=== PATIENT | female | born 1985 | race Caucasian/White ===

== ENCOUNTER 2018-07-16 23:45 | Inpatient (IN) | payer BC ==
[2018-07-17 00:11] VITALS: BMI 28.1
[2018-07-17 00:50] LABS: SQUAMOUS EPITHIAL 3 /hpf (0-5); URINE BACTERIA RARE (<OCC); URINE BILIRUBIN NEGATIVE (NEGATIVE); URINE BLOOD NEGATIVE (NEGATIVE); URINE CLARITY Clear (Clear); URINE COLOR Straw (YELLOW); URINE GLUCOSE (UA) NORMAL (Normal); URINE LEUKOCYTE ESTERASE NEG Leu/uL (Negative); URINE PROTEIN NEGATIVE (NEGATIVE); URINE UROBILINOGEN NORMAL mg/dL (0.2-1.0)
[2018-07-17] MEDS ORDERED: Lactated Ringer's 1,000 ML IV ONE (01:13)
[2018-07-17] MEDS ORDERED: Penicillin G 5 Million Unit Vial IVPB ONE ×2 (01:13→01:42)
[2018-07-17 01:46] LABS: BASO # 0.1 K/uL (0.0-0.2); BASO % 0.6 % (0.0-2.0); EOS # 0.1 K/uL (0.0-0.7); EOS % 0.6 % (0.0-4.0); HEMOGLOBIN 12.4 g/dL (11.0-16.0); LYMPH # 1.7 K/uL (1.0-4.3); MEAN CELL VOLUME 93.9 fL (81.0-99.0); MEAN CORPUSCULAR HEMOGLOBIN 31.8 pg (27.0-31.0); MEAN CORPUSCULAR HGB CONC 33.9 g/dL (33.0-37.0); MEAN PLATELET VOLUME 8.5 fL (7.2-11.7); MONO # 1.1 K/uL (0.0-0.8); MONO % 7.5 % (0.0-10.0); NEUT # 11.1 K/uL (1.8-7.0); NEUT % 79.3 % (50.0-75.0); RBC 3.89 Mil/uL (3.80-5.20); RED CELL DISTRIBUTION WIDTH 14.5 % (11.5-14.5)
[2018-07-17 01:59] LABS: ALB/GLOB RATIO 1.2 (1.0-2.1); ALBUMIN 3.8 g/dL (3.5-5.0); ALT/SGPT 40 U/L (9-52); AST/SGOT 24 U/L (14-36); BLOOD UREA NITROGEN 7 mg/dL (7-17); CALCIUM 9.2 mg/dl (8.6-10.4); GFR NON-AFRICAN AMERICAN > 60
[2018-07-17] MEDS: Lactated Ringer's 1,000 ML IV SCH (02:35)
--- NOTE | 2018-07-17 10:39 | US ---
Indication: Comparison: None available. Technique: Real-time ultrasound was performed through the pelvis. Findings: There is a single living fetus in cephalic presentation. Amniotic fluid volume is within normal limits. Anterior placenta. The placenta is not previa. There are no adnexal masses or cysts evident. Cervix length measures approximately 2.3 cm. The study was performed for emergent evaluation, and the whole anatomic survey of the fetus was not performed. Biophysical profile: movements 2/2 breathing 2/2 tone 2/2 Amniotic fluid 2/2 Total score impression: 8/8 Measurements and calculations: Fetus has a composite sonographic age of 38 weeks 4 days. This calculation is based on the biparietal diameter, head circumference, abdominal circumference, and femur length. Estimated heart rate 146 beats per min. Estimated weight 3580 g. Impression: Single living fetus with a composite sonographic age of 38 weeks 4 days. Estimated heart rate 146 beats per min. Cervix length appears shortened measuring approximately 2.3 cm. Biophysical profile of 8 out of 8.
[2018-07-17] MEDS ORDERED: Bupivacaine HCl/FentaNYL Cit 100 ML EPI ONE ×2 (12:41→20:45)
[2018-07-17] MEDS ORDERED: Oxytocin 30 UNIT 30 UNITS/500 ML BAG IV SCH (19:45)
[2018-07-17] MEDS ORDERED: Oxytocin 30 UNIT 30 UNITS/500 ML BAG IV ONE (22:18)
[2018-07-17] MEDS ORDERED: Oxycodone/Acetaminophen 5/325 mg Tab PO PRN ×2 (22:18→22:44)
[2018-07-17] MEDS ORDERED: Sodium Citrate/Citric Acid 15 ml Sol ONE (22:46)
[2018-07-17] MEDS ORDERED: Sodium Citrate/Citric Acid 15 ml Sol PO STA (22:47)
[2018-07-17] MEDS ORDERED: Lidocaine 2% MPF (5 ml) Inj ONE (23:45)
[2018-07-17] MEDS ORDERED: Lidocaine Hydrochloride 10 ML INJ ONE (23:45)
[2018-07-17] MEDS ORDERED: Morphine 1 mg/ml preservative-free Inj(Duramorph) ONE (23:51)
[2018-07-17] MEDS ORDERED: Midazolam 2 MG/2 ML VIAL ONE (23:51)
[2018-07-18] MEDS ORDERED: Oxytocin 10 Units/ml Inj ONE (00:04)
[2018-07-18 08:41] LABS: HEMOGLOBIN 9.6 g/dL (11.0-16.0); MEAN CELL VOLUME 93.9 fL (81.0-99.0); MEAN CORPUSCULAR HEMOGLOBIN 31.4 pg (27.0-31.0); MEAN CORPUSCULAR HGB CONC 33.4 g/dL (33.0-37.0); MEAN PLATELET VOLUME 8.2 fL (7.2-11.7); RBC 3.07 Mil/uL (3.80-5.20); RED CELL DISTRIBUTION WIDTH 14.4 % (11.5-14.5)
[2018-07-18] MEDS: Prenatal Multivit/Folic Acid/Iron Tab PO SCH (10:13)
[2018-07-18] MEDS: Simethicone 80 mg Chewtab PO SCH ×4 (10:13→21:55)
[2018-07-18] MEDS: Lactated Ringer's 1,000 ML IV SCH ×2 (12:38→17:43)
[2018-07-18 17:05] LABS: BASO # 0.1 K/uL (0.0-0.2); BASO % 0.2 % (0.0-2.0); HEMOGLOBIN 9.6 g/dL (11.0-16.0); LYMPH # 1.4 K/uL (1.0-4.3); LYMPH % 6.3 % (20.0-40.0); MEAN CELL VOLUME 93.6 fL (81.0-99.0); MEAN CORPUSCULAR HEMOGLOBIN 31.8 pg (27.0-31.0); MEAN PLATELET VOLUME 8.1 fL (7.2-11.7); MONO # 1.6 K/uL (0.0-0.8); MONO % 7.3 % (0.0-10.0); NEUT # 19.2 K/uL (1.8-7.0); NEUT % 86.2 % (50.0-75.0); PLATELET COUNT 164 K/uL (130-400); RBC 3.03 Mil/uL (3.80-5.20); RED CELL DISTRIBUTION WIDTH 14.8 % (11.5-14.5); WHITE BLOOD COUNT 22.2 K/uL (4.8-10.8)
[2018-07-18 17:48] LABS: LYMPHOCYTE 8 % (20-40); METAMYELOCYTE 1 % (0-0); MONOCYTE 2 % (0-10); NEUTROPHIL 89 % (50-75); TOTAL CELLS COUNTED 100
[2018-07-18 17:49] LABS: PLATELET ESTIMATE NORMAL (NORMAL)
[2018-07-19] MEDS: Simethicone 80 mg Chewtab PO SCH ×4 (10:09→22:09)
[2018-07-19] MEDS: Prenatal Multivit/Folic Acid/Iron Tab PO SCH (10:24)
--- NOTE | 2018-07-19 11:40 | OBADHP ---
Datetime: 07/17/2018 01:59 Admit Comment, IP Provider: 32 yo female G1 with an IUP at 38.6 weeks Presented with c/o of painful contractions Q 4-5 minutes and since about 8 PM tonite Admits to adequate FM, Denies LOF, VB or VD PMHx and PSHx negative Meds PNV NKDA + GBS, per [facility] records NST Reactive UC's Q 405 minutes SVE 2, 80%, O station and BBOW Early labor and requesting an Epidural Dr. Godinez notified and request to admit patient for anticipated vaginal delivery Will start on Pcn P for GBS prophylaxis Hope for a vaginal delivery Pelvic Type - PN: Adequate Extremities - PN: Normal Abdomen - PN: Normal Back - PN: Normal Breast - PN: Not Done Lungs - PN: Normal Heart - PN: Normal Thyroid - PN: Normal Neurologic - PN: Normal HEENT - PN: Normal General - PN: Normal Presentation-Admit: Vertex FHR - Baseline A Provider: 38.6 Membranes, Provider: Intact Contraction Comments Provider: 4-5 Vital Signs Provider: Reviewed; Within Normal Limits IP Chief Complaint: Uterine contractions; Maternal discomfort Dilatation, Provider: 2 Effacement, Provider: 80 Station, Provider: 0 Genitourinary Exam: Normal DTRs - PN: Normal EGA AdmitDate IP: 38.6 IP Adm Impression: Term, intrauterine ; Active labor; Intact Membranes IP Admit Plan: Admit to unit; Initiate labor protocol Datetime: 07/17/2018 00:20 Gestation - Est Wks by US: 38.6 IP Hx Assessment: Prenatl records available and reviewed NICHD Variability Prov Fetus A: Moderate 6-25bpm NICHD Accel Fetus A IP Provider: 10X10 FHR Category Provider Fetus A: Category I NICHD Decel Fetus A IP Provider: None
[2018-07-20] MEDS ORDERED: Influenza Vaccine 60 MCG/0.5 ML SYR (3 yr & up) IM ONE (07:14)
[2018-07-20 08:39] VITALS: BP 106/70; PULSE 73; RESP 18; TEMP 97.1; O2SAT 98
[2018-07-20] MEDS: Prenatal Multivit/Folic Acid/Iron Tab PO SCH (09:40)
[2018-07-20] MEDS: Simethicone 80 mg Chewtab PO SCH ×2 (09:40→13:39)
--- NOTE | 2018-07-20 15:18 | OBDS ---
DELIVERY PERSONNEL Delivery Doctor: Issac Godinez MD Scrub Nurse: Carline Huddleston Milking Machine Technician: Maliha Yu RN Anesthesiologist: DR JACINTO MATERNAL INFORMATION Delivery Anesthesia: Epidural Medications in Delivery: PITOCIN Estimated Blood Loss (ml): 500 Placenta Cultured: No Maternal Complications: None RN Comments: LIVE BABY BOY Provider Comments: Nuchal cord X 1 LABOR SUMMARY EDC: 07/25/2018 00:00 No. Babies in Womb: 1 Attempted: No Labor Anesthesia: Epidural LABOR INFORMATION Onset of Labor: 07/17/2018 00:59 Complete Dilatation: 07/17/2018 21:42 Oxytocin: Augmentation Group B Beta Strep: Positive Antibiotics # of Doses: 6 Antibiotics Time of Last Dose: 2155 Steroids Given: None Reason Steroids Not Administered: Not Applicable MEMBRANES Membranes Rupture Method: Artificial Rupture of Membranes: 07/17/2018 18:55 Length of Rupture (hrs): 5.05 Amniotic Fluid Color: Clear Amniotic Fluid Amount: Small Amniotic Fluid Odor: Normal STAGES OF LABOR Stage 1 hrs: 20 Stage 1 min: 43 Stage 2 hrs: 2 Stage 2 min: 16 Stage 3 hrs: 0 Stage 3 min: 2 Total Time in Labor hrs: 23 Total Time in Labor min: 1 CSECTION DELIVERY Primary Indication: Arrest of Descent Secondary Indication: CPD CSection Urgency: Elective CSection Incidence: Primary Labor: Labor Elective: Elective CSection Incision: Lower Uterine Transverse BABY A INFORMATION Delivery Date/Time: 07/17/2018 23:58 Method of Delivery: Born in Route : No : N/A Forceps: N/A Vacuum Extraction: N/A Shoulder Dystocia : No SHOULDER DYSTOCIA BABY A Infant Delivery Date/Time: 07/17/2018 23:58 PRESENTATION/POSITION BABY A Presentation: Cephalic Cephalic Presentation: Vertex Vertex Position: Direct Occipital Posterior Breech Presentation: N/A PLACENTA INFORMATION BABY A Placenta Delivery Time : 07/18/2018 00:00 Placenta Method of Delivery: Manual Removal Placenta Status: Delivered SCORES BABY A Heart Rate 1 min: >100 bpm Resp Effort 1 min: Good Cry Reflex Irritability 1 min: Cough or Sneeze or Pulls Away Muscle Tone 1 min: Active Motion Color 1 min: Body [place], Extremities Blue Resuscitation Effort 1 min: Tactile Stimulation SCORE 1 MIN: 9 Heart Rate 5 min: >100 bpm Resp Effort 5 min: Good Cry Reflex Irritability 5 min: Cough or Sneeze or Pulls Away Muscle Tone 5 min: Active Motion Color 5 min: Body [place], Extremities Blue Resuscitation Effort 5 min: Tactile Stimulation SCORE 5 MIN: 9 INFANT INFORMATION BABY A Gestational Age at Delivery: 38.6 Gestational Status: Term Outcome : Liveborn Infant Condition : Stable Sex: Male IDENTIFICATION/MEDS BABY A ID Band Number: [id number] ID Band Location: Left Leg; Left Arm Sensor Applied: Yes Sensor Number: [id number] Sensor Location : Cord Clamp WEIGHT/LENGTH BABY A Birthweight (gms): 3245 Infant Weight (lb): 7 Weight (oz): 2 Length Inches: 21.00 Length cms: 53.3 CORD INFORMATION BABY A No. Cord Vessels: 3 Nuchal Cord : Around Neck x1, Loose Cord Blood Taken: Yes Infant Suction: Mouth; Nose ASSESSMENT BABY A Infant Complications: None Physical Findings at Delivery: Within Normal Limits Infant Respirations: Appears Normal Fish Egg Packer/ALS Called : No Care By: DR. WOOD /HANNAH BACON RN Transferred To: [facility]
--- NOTE | 2018-07-20 15:21 | OBPPN ---
Datetime: 07/20/2018 15:19 PP Pain Prov: Within normal limits PP Nausea Prov: Denies PP Flatus Prov: Yes PP Breasts Prov: Normal PP Heart Prov: Normal PP Lungs Prov: Normal PP Abdomen/Uterus Prov: Normal PP Lochia Prov: Normal PP Vulva/Perineum Prov: Normal PP CVA Tenderness Prov: Normal PP Extremities Prov: Normal PP Impression Prov: Normal progression PP Plan Prov: Continue present management PP Progress Note Prov: POD #3 No C/O VS Stable Wound Clean P: Home today IP PP Procedures: None Datetime: 07/19/2018 11:17 PP C/S Incision Prov: Normal PP Progress Prov: Normal
--- NOTE | 2018-07-20 15:35 | OBDCSUM ---
Datetime: 07/20/2018 15:31 Discharged to, Provider: Home Follow up at, Provider: Dr. Godinez Disch Instr Activity: Normal activity Disch Instr Diet: Regular Discharge Instructions, Provider: Routine instructions given Discharge Diagnosis, Provider: Term Delivered Discharge Time: 07/20/2018 15:31 Follow up in weeks, Provider: 1 week Disch Referrals: None Contraception discussed, Prov: Yes Disch Activity Restrictions: No sexual activity Contraception after Delivery: Not Planning to Use Datetime: 07/20/2018 15:21 Discharged to, Provider: Home Follow up at, Provider: Dr. Godinez Disch Instr Activity: Normal activity Disch Instr Diet: Regular Discharge Instructions, Provider: Routine instructions given Discharge Diagnosis, Provider: Term Delivered Discharge Time: 07/20/2018 15:21 Follow up in weeks, Provider: 1 week Disch Referrals: None Contraception discussed, Prov: Yes Disch Activity Restrictions: No exercising; No sexual activity
== END 2018-07-20 18:40 | disposition home or self-care (01) | DRG 788 ==
LOC: C.EROB 23:45 → C.4D 07-17 01:15 → C.4M 07-18 03:15
PROVIDERS: ADMIT Obstetrics & Gynecology Gynecology; ATTEND Obstetrics & Gynecology Gynecology
PROC: 10D00Z1 Extraction of Products of Conception, Low, Open Approach (ICD-10-PCS; principal; 2018-07-17)
DX: O33.9 Maternal care for disproportion, unspecified (principal); O69.81X0 Labor and delivery complicated by cord around neck, without compression, not applicable or unspecified; Z3A.38 38 weeks gestation of pregnancy; O66.9 Obstructed labor, unspecified; Z37.0 Single live birth